=== PATIENT | male | born 2000 | race Native Hawaiian/Other Pacific Islander ===

== ENCOUNTER 2022-05-08 23:59 | Emergency (ER) | payer OTHER ==
[~2022-05-08] VITALS: Ht 182.9 cm; Wt 53.5 kg
[2022-05-09 01:10] VITALS: BP 113/62; TEMP 99
== END 2022-05-09 01:10 | disposition home or self-care (01) ==
LOC: ED 23:59
DX: J20.9 Acute bronchitis, unspecified (principal)
CPT/HCPCS: 94664; 96365; 96375; 99284; J0696; J2930